=== PATIENT | female | born 1955 | race Caucasian/White ===

== ENCOUNTER 2024-11-11 12:11 | Outpatient (OUT) | payer MEDICARE, SELFPAY ==
--- OUTSIDE RECORDS SUMMARY | 2024-11-11 12:30 | XMS_ITS | Clinical Summary ---
Author Organization [facility] Address [address], [address] [place] [address] Care Team Providers Care Production Administrator Name Role Phone Hector Hardy MD Primary Care Provider [phone] Allergies Active Allergy Reactions Criticality Noted Date Comments Penicillins 06/11/2012 Medications loratadine (CLARITIN) 10 MG capsule Take 1 tablet by mouth daily Active estradiol (ESTRACE VAGINAL) 0.1 MG/GM vaginal creamIndication s:Frequent UTI,Vaginal atrophy,OAB (overactive bladder),Urinar y frequency,Urina ry urgency Place [address] a pea-sized amount vaginally daily x 2 wks, then use 3 times per wk thereafter 1 each 3 3 Active Active Problems No known active problems Family History Medical History Relation Name Comments Diabetes Daughter Cancer Father Heart Disease Father High Blood Pressure Father Breast Cancer Maternal Aunt High Blood Pressure Mother Diabetes Paternal Uncle Relation Name Status Comments Daughter Father Maternal Aunt Mother Paternal Uncle Social History Tobacco Use Types Packs/Day Years Used Date Smoking Tobacco: Former Cigarettes 1 - 1980 Smokeless Tobacco: Never Tobacco Cessation:Counseling Given: Not Answered Alcohol Use Standard Drinks/Week Comments Yes 0 (1 standard drink = 0.6 oz pur e alcohol) occ Overall Financial Resource Strain (CARDIA) Answe r Date Recorded How hard is it for you to pa y for the very basics like food, housing, medical care, and heating? Not hard at all 08/29/2020 PHQ-2 Answer Date Recorded PHQ-9 Total Score 0 10/06/2022 Hunger Vital Sign Answer Date Recorded Within the past 12 months, y ou worried that your food would run out before you got the money to buy more. Never true 08/30/19 21 Within the past 12 months, t he food you bought just didn't last and you didn't have money to get more. Never true 08/29/2020 Comments No Sex and Gender Information Value Date Recorded Sex Assigned at Not on file Legal Sex Female 6:41 PM EST Gender Identity Not on file Sexual Orientation Not on file Last Filed Vital Signs Vital Sign Reading Time Taken Comments Blood Pressure 124/80 12/17/2022 10:25 AM EDT Pulse 85 12/17/2022 10:25 AM EDT Temperature 36.5 C (97.7 F) 12/17/2022 10:25 AM EDT Respiratory Rate 18 01/02/2021 9:22 AM EST Oxygen Saturation 99% 01/02/2021 9:22 AM EST Inhaled Oxygen Concentration - - Weight 53.5 kg (118 lb) 12/17/2022 10:25 AM EDT Height 170.2 cm (5' 7 ) 12/03/2022 3:26 PM EDT Body Mass Index 18.48 12/03/2022 3:26 PM EDT Plan of Treatment Health Maintenance Due Date Last Done Comments Depression Screen 1969 Hepatitis C screen 1975 DTaP/Tdap/Td vaccine (1 - Tdap) 02/27/1976 Colonoscopy 2002 Fecal-DNA (Cologuard): Average risk 2002 Sigmoidoscopy/CT colonography 2002 Pneumococcal 50+ years Vaccine (1 of 1 - PCV) 2007 Shingles vaccine (1 of 2) 2007 Colorectal Cancer Screen 01/03/2021 FIT/FOBT: Average risk 01/03/2021 01/04/2020 Annual Wellness Visit (Medicare) 01/19/2023 Breast cancer screen 08/19/2024 08/19/2022, 06/13/2021, 01/03/2020, Additional history exists Flu vaccine (#1) 09/23/2024 COVID-19 Vaccine ( season) 2024 Lipids 01/03/2025 01/04/2020 Respiratory Syncytial Virus (RSV) or age 60 yrs+ (1 - 1-dose 75+ series) 02/27/2032 Cervical cancer screen Discontinued HPV (without or with Pap) Discontinued 10/06/2022, 11/2020 Pap smear Discontinued 10/06/2022, 09/23, 10/06/2022, Additional history exists DEXA (modify frequency per FRAX score) Completed 06/25/2023 Hepatitis A vaccine Aged Out No longe r eligible based on patient's age to complete this topic Hepatitis B vaccine Aged Out No longe r eligible based on patient's age to complete this topic Hib vaccine Aged Out No longer eligi ble based on patient's age to complete this topic Meningococcal (ACWY) vaccine Aged Out No longer eligible based on patient's age to complete this topic Meningococcal B vaccine Aged Out No l onger eligible based on patient's age to complete this topic Polio vaccine Aged Out No longer elig ible based on patient's age to complete this topic Procedures Procedure Name Priority Date/Time Associated Diagnosis Comments DEXA BONE DENSITY AXIAL SKELETON Routine 06/25/2023 1:56 PM EDT Age-related osteoporosis without current pathological fracture HUMAN PAPILLOMAVIRUS (HPV) DNA PROBE THIN PREP HIGH RISK Routine 10/06/2022 12:00 AM EDT SPARK TESTER CYTOLOGY Routine 10/06/2022 12:00 AM EDT LANDON ESSIE DIGITAL SCREEN SELF REFERRAL W OR WO CAD BILATERAL Routine 08/19/2022 12:37 PM EDT Breast cancer screening by mammogram POCT FECAL IMMUNOCHEMICAL TEST (FIT) Routine 01/04/2020 1:00 PM EST Screen for colon cancer LIPID PANEL W/ REFLEX DIRECT LDL Routine 01/04/2020 9:05 AM EST from Last 3 Months or Most Recently Relevant to Health Maintenance Results * DEXA BONE DENSITY AXIAL SKELETON (06/25/2023 1:56 PM EDT) Anatomical Region Laterality Modality Head, C-spine, T-spine, L-spine, Chest Radiographic Imaging 06/26/2023 10:2 0 AM EDT Impressions 06/26/2023 10:47 AM EDT Osteopenia by WHO criteria. RECOMMENDATIONS: 1. All patients should optimize their calcium and vitamin D intake. 2. Consider FDA-approved medical therapies in postmenopausal women and men aged 50 years and older, based on the following: - A hip or vertebral (clinical or morphometric) fracture - T-score less than or equal to -2.5 at the femoral neck or spine after appropriate evaluation to exclude secondary causes - Low bone density (T-score between -1.0 and -2.5 at the femoral neck or spine) and a 10-year probability of a hip fracture greater than or equal to 3% or a 10-year probability of a major osteoporosis-related fracture greater than or equal to 20% based on FRAX calculation. - Clinician judgment and/or patient preferences may indicate treatment for people with 10-year fracture probabilities above or below these levels - Further guidance on treatment can be found at the National Osteoporosis Foundation's website bonesource.org. 3. Patients with diagnosis of osteoporosis or at high risk for fracture should have regular bone mineral density tests. For patients eligible for Medicare, routine testing is allowed once every 2 years. The testing frequency can be increased to one year for patients who have rapidly progressing disease, those who are receiving or discontinuing medical therapy to restore bone mass or have additional risk factors. Template code: [id number] Narrative 06/26/2023 10:47 AM EDT EXAMINATION: BONE DENSITOMETRY 06/25/2023 10:56 am TECHNIQUE: A bone density dual x-ray absorptiometry (DXA) scan was performed of the lumbar spine and left hip on a Battle[employer] system. COMPARISON: None. HISTORY: ORDERING SYSTEM PROVIDED HISTORY: Age-related osteoporosis without current pathological fracture Gender: F Age: 68 y/o FINDINGS: LUMBAR SPINE: L1-L4 BMD: 1.078 g/cm2 T-score: -0.8 Z-score: 1.1 LEFT TOTAL HIP: BMD: 0.874 g/cm2 T-score: -1.1 Z-score: 0.4 LEFT FEMORAL NECK: BMD: 0.929 g/cm2 T-score: -0.8 Z-score: 0.9 FRAX 10-YEAR PROBABILITY OF FRACTURE: 10-year fracture risk is performed using the [employer] FRAX calculator based on patient-reported risk factors. Major osteoporotic fracture: 6.7% Hip fracture: 0.5% Other situations known to alter the reliability of the FRAX score should be considered when making treatment decisions, including chronic glucocorticoid use and past treatments. Further guidance on treatment can be found at the National Osteoporosis Foundation's website bonesource.org. Procedure Note Bernardo Kelly DO - 06/26/2023 EXAMINATION: BONE DENSITOMETRY 06/25/2023 10:56 am TECHNIQUE: A bone density dual x-ray absorptiometry (DXA) scan was performed of the lumbar spine and left hip on a [employer] system. COMPARISON: None. HISTORY: ORDERING SYSTEM PROVIDED HISTORY: Age-related osteoporosis withoutcurrent pathological fracture Gender: F Age: 68 y/o FINDINGS: LUMBAR SPINE: L1-L4 BMD: 1.078 g/cm2 T-score: -0.8 Z-score: 1.1 LEFT TOTAL HIP: BMD: 0.874 g/cm2 T-score: -1.1 Z-score: 0.4 LEFT FEMORAL NECK: BMD: 0.929 g/cm2 T-score: -0.8 Z-score: 0.9 FRAX 10-YEAR PROBABILITY OF FRACTURE: 10-year fracture risk is performed using the [employer]RA[employer] calculator based on patient-reported risk factors. Major osteoporotic fracture: 6.7% Hip fracture: 0.5% Other situations known to alter the reliability of the FRAX score shouldbe considered when making treatment decisions, including chronicglucocorticoid use and past treatments. Further guidance on treatment can be found atthe National Osteoporosis Foundation's website bonesource.org. IMPRESSION: Osteopenia by WHO criteria. RECOMMENDATIONS: 1. All patients should optimize their calcium and vitamin D intake. 2. Consider FDA-approved medical therapies in postmenopausal women andmen aged 50 years and older, based on the following: - A hip or vertebral (clinical or morphometric) fracture - T-score less than or equal to -2.5 at the femoral neck or spine after appropriate evaluation to exclude secondary causes - Low bone density (T-score between -1.0 and -2.5 at the femoral neck or spine) and a 10-year probability of a hip fracture greater than or equalto 3% or a 10-year probability of a major osteoporosis-related fracturegreater than or equal to 20% based on FRAX calculation. - Clinician judgment and/or patient preferences may indicate treatmentfor people with 10-year fracture probabilities above or below these levels - Further guidance on treatment can be found at the NationalOsteoporosis Foundation's website bonesource.org. 3. Patients with diagnosis of osteoporosis or at high risk for fracture should have regular bone mineral density tests. For patients eligiblefor Medicare, routine testing is allowed once every 2 years. The testing frequency can be increased to one year for patients who have rapidly progressing disease, those who are receiving or discontinuing medicaltherapy to restore bone mass or have additional risk factors. Template code: [id number] us Hector Hardy MD [employer] DEXA ORDERABLES Final Resul t * Human papillomavirus (HPV) DNA probe thin prep high risk (10/06/2022 12:00 AM EDT) Specimen Description CERVICAL MATERIAL 10/06/2022 12:00 AM [employer] HPV Sample .THIN PREP 10/06/2022 12:00 AM [employer] HPV, Genotype 16 Not Detected Not Detected 10/06/2022 12:00 AM [employer] HPV, Genotype 18 Not Detected Not Detected 10/06/2022 12:00 AM [employer] HPV, High Risk Other Not Detected Not Detected 10/06/2022 12:00 AM [employer] HPV, Interpretation 10/06/2022 12:00 AM [employer] [facility] Comment: This test amplifies and detects DNA of 14 high-risk HPV types associated with cervical cancer and its precursor lesions (HPV types 16,18, 31, 33, 35, 39, 45, 51, 52, 56, 58, 59, 66, and 68). Sensitivity may be affected by specimen collection methods, stage of infection, and the presence of interfering substances. Results should be interpreted in conjunction with other available laboratory and clinical data. A negative high-risk HPV result does not exclude the possibility of future cytologic HSIL or underlying CIN2-3 or cancer. This test is intended for medical purposes only and is not valid for the evaluation of suspected sexual abuse or for other forensic purposes. CERVICAL MATERIAL 10/06/2022 Kim Slaughter Nabil GOVERNMENT PROPERTY INSPECTOR - CNM HEMATOLOGY ORDERABLES Final Result LAB [address] [place] [address], [facility] [phone] [facility] [address] [place] [address], [facility] [phone] * SPARK TESTER Cytology (10/06/2022 12:00 AM EDT) Cytology Report Path Number: [id number] DIAGNOSIS Imaged ThinPrep Pap - Cervical (1 monolayer slide): Specimen Adequacy: Satisfactory for evaluation. -Endocervical/tra nsformation zone component cannot be determined due to atrophy. - Partially obscuring exudate. Descriptive Diagnosis: Negative for intraepithelial lesion or malignancy. Cytotech Screener: [id number] Electronically Signed Out DILCIA Mendes(ASCP) ss4/10/14/2022 Procedure/Addendum HPV Procedure Report Date Ordered: 10/07/2022 Status: Signed Out Date Complete: 10/08/2022 By: System Interface Date Reported: 10/08/2022 Sample: HPV Type 16 Result: Not Detected Ref Range: (Not Detected) Sample: HPV Type 18 Result: Not Detected Ref Range: (Not Detected) Sample: Other High Risk HPV Result: Not Detected Ref Range: (Not Detected) Sample: HPV Interp Result: Ref Range: (Not Detected) This test amplifies and detects DNA of 14 high-risk HPV types associated with cervical cancer and its precursor lesions (HPV types 16,18, 31, 33, 35, 39, 45, 51, 52, 56, 58, 59, 66, and 68). Sensitivity may be affected by specimen collection methods, stage of infection, and the presence of interfering substances. Results should be interpreted in conjunction with other available laboratory and clinical data. A negative high-risk HPV result does not exclude the possibility of future cytologic HSIL or underlying CIN2-3 or cancer. This test is intended for medical purposes only and is not valid for the evaluation of suspected sexual abuse or for other forensic purposes. Performed at [facility] [address] [place] [address] [phone] Source of Specimen: A: Imaged ThinPrep Pap - Cervical (1 monolayer slide) HPV Reflex?........... 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 Your patient should be reminded to consult you immediately if she experiences any suspicious signs or symptoms, regardless of her Pap smear result. GYNECOLOGIC CYTOLOGY REPORT Patient Name: JALEESA CARMONA [facility] Rec: [id number] [facility] ANATOMIC PATHOLOGY [address] [place] [address]. [place], [place] [address] N-1-1 [facility] CERVICAL MATERIAL 10/06/2022 023 6:21 AM EDT Kim Ferrer GOVERNMENT PROPERTY INSPECTOR - CNJuan PATHOLOGY/CYTOLOGY OR DERABLES Final Result LAB [address] [phone] [email or web address] [facility] * LANDON ESSIE DIGITAL SCREEN SELF REFERRAL W OR WO CAD BILATERAL (08/19/2022 12:37 PM EDT) Anatomical Region Laterality Modality Breast Bilateral Mammography 08/19/2022 12:4 1 PM EDT Impressions 08/19/2022 5:02 PM EDT No evidence of malignancy. Advise annual screening mammography. BREAST DENSITY SUMMARY C: The breasts are heterogeneously dense which may obscure small masses. BI-RADS 2 BIRADS: BIRADS - CATEGORY 2 Benign Findings. Normal interval follow-up is recommended in 12 months. OVERALL ASSESSMENT - BENIGN A letter of notification will be sent to the patient regarding the results. The [employer] recommends annual mammograms for women 40 years and older. Narrative 08/19/2022 5:02 PM EDT EXAMINATION: SCREENING DIGITAL BILATERAL MAMMOGRAM WITH TOMOSYNTHESIS, 08/19/2022 TECHNIQUE: Screening mammography of the bilateral breasts was performed with tomosynthesis. 2D standard and 3D tomosynthesis combination imaging performed through both breasts in the MLO and CC projection. Computer aided detection was utilized in the interpretation of this exam. COMPARISON: 13 June 2021; 03 January 2020 HISTORY: Screening. Negative family history of breast cancer. 1 month history of hormonal replacement. No breast interventions. FINDINGS: Breasts are composed of heterogeneously dense parenchyma. No skin thickening, nipple contour changes, suspicious calcifications, suspicious masses, areas of architectural distortion or significant interval changes are noted. Stable scattered benign-appearing calcifications are present in both breasts. Hector Hardy MD IMG MAMMOGRAPHY ORDERABLES Swetha l Result * POCT Fecal Immunochemical Test (FIT) (01/04/2020 1:00 PM EST) Pathologist [facility] Occult Blood Fecal Negative Control STOOL SPECIMEN / Unknown 01/04/2020 1:00 PM EST Maria R W Nathan GREGORYN - BOOK PUBLISHER POINT OF CARE TEST SAPNA LEIJA Final Result * Lipid Panel w/ Reflex Direct LDL (01/04/2020 9:05 AM EST) Cholesterol 168 150 - 200 mg/dL [facility] Triglycerides 63 27 - 150 mg/dL [facility] HDL 52 >39 mg/dL [facility] Comment: HDL <40 mg/dL - High Risk HDL > or = 40mg/dL- Desirable HDL >60 mg/dL - Negative Risk LDL Calculated 103 <130 mg/dL [facility] Comment: LDL <100 mg/dL - Desirable LDL >160 mg/dL - High Risk VLDL Cholesterol Calculated 13 0 - 30 mg/dL [facility] LDL/HDL Ratio 2.0 <3.5 [facility] Chol/HDL Ratio 3.2 1.0 - 5.0 [facility] Comment: Test performed at [facility] [address] [place] [address] CLIA Number [id number] 01/04/2020 9:05 AM EST 01/04/2020 1:12 PM EST Narrative [facility] - 01/05/2020 12:48 AM EST Ordering Provider: MARIA R MEAD Maria R Mead GOVERNMENT PROPERTY INSPECTOR - BOOK PUBLISHER CHEMISTRY ORDERABLES nal Result -[facility] from Last 3 Months or Most Recently Relevant to Health Maintenance Additional Health Concerns Infection Onset Date Last 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
[2024-11-11 13:34] LABS: Hematocrit 38.4 % (36.0-48.0); Hemoglobin 13.2 g/dL (12.0-16.0); Immature Granulocytes Abs Auto 0.02 10^3/uL (0.00-0.03); Immature Granulocytes Pct Auto 0.3 % (0.0-0.5); Lymphocytes Absolute Auto 1.7 10^3/uL (1.2-3.8); Mean Corpuscular HGB Conc 34.4 g/dL (29.9-35.2); Mean Corpuscular Hemoglobin 31.5 pg (26.7-34.0); Mean Corpuscular Volume 91.6 fL (81.0-99.0); Platelet Count 197 10^3/uL (150-450); Red Blood Count 4.19 10^6/uL (4.20-5.40); White Blood Count 7.5 10^3/uL (4.0-11.0)
[2024-11-11 13:53] LABS: Alanine Aminotransferase 22 U/L (14-59); Albumin Globulin Ratio 1.3; Albumin Level 3.9 g/dL (3.4-5.0); Alkaline Phosphatase 53 U/L (46-116); Anion Gap 11.8; Aspartate Amino Transferase 15 U/L (15-37); Blood Urea Nitrogen 23.0 mg/dL (7.0-18.0); Calcium 9.0 mg/dL (8.5-10.1); Carbon Dioxide 27.8 mmol/L (21.0-32.0); Chloride 109 mmol/L (98-107); Estimated GFR (African America >60 (>=60 mL/min/1.73m^2); Estimated GFR (Non-African Ame >60 (>=60 mL/min/1.73m^2); Free T3 2.03 pg/mL (2.18-3.98); Globulin 3.0 g/dL; Glucose 97 mg/dL (74-106); Potassium 4.6 mmol/L (3.5-5.1); Sodium 144 mmol/L (136-145); Thyroid Stimulating Hormone 2.496 uIU/mL (0.358-3.740); Total Protein 6.9 g/dL (6.4-8.2)
[2024-11-11 14:19] LABS: Iron 81.0 ug/dL (50.0-170.0)
== END 2024-11-11 12:12 | disposition home or self-care (01) ==
PROVIDERS: PCP Family Medicine; Visit Provider Family Medicine
DX: R00.2 Palpitations (principal); I95.9 Hypotension, unspecified; D64.9 Anemia, unspecified
CPT/HCPCS: 36415; 80053; 83540; 84436; 84443; 84481; 85025; 93242